=== PATIENT | male | born 1995 | race Caucasian/White ===

== ENCOUNTER 2017-02-10 05:31 | Emergency (ER) | payer OTHER ==
[~2017-02-10] VITALS: Ht 185.4 cm; Wt 97.5 kg
[2017-02-10 07:15] VITALS: BP 105/72
== END 2017-02-10 07:15 | disposition other institution (70) ==
LOC: ED 05:31
DX: Z02.89 Encounter for other administrative examinations (principal); R07.89 Other chest pain; V43.52XA Car driver injured in collision with other type car in traffic accident, initial encounter; W22.10XA Striking against or struck by unspecified automobile airbag, initial encounter; Y93.89 Activity, other specified; Y99.8 Other external cause status; Y92.89 Other specified places as the place of occurrence of the external cause
CPT/HCPCS: J1885; Q0092; Q0162

== ENCOUNTER 2017-02-10 05:31 | Emergency (ER) | payer OTHER | END 2017-02-10 07:15 | disposition other institution (70) | LOC: ED 05:31 | DX: Z02.89 Encounter for other administrative examinations (principal); R07.89 Other chest pain; V43.52XA Car driver injured in collision with other type car in traffic accident, initial encounter; W22.10XA Striking against or struck by unspecified automobile airbag, initial encounter; Y99.8 Other external cause status; Y93.89 Activity, other specified; Y92.89 Other specified places as the place of occurrence of the external cause ==